=== PATIENT | male | born 1995 | race Caucasian/White ===

== ENCOUNTER 2017-12-22 15:24 | Outpatient (CLI) | payer BC | END 2017-12-22 15:25 | disposition home or self-care (01) | LOC: BICMRI 15:24 → MRI 15:25 | PROVIDERS: ATTEND Chiropractor | DX: M54.5 Low back pain (principal); M25.559 Pain in unspecified hip; M47.896 Other spondylosis, lumbar region; M47.897 Other spondylosis, lumbosacral region | CPT/HCPCS: 72148 ==